=== PATIENT | male | born 1945 | race Caucasian/White ===

== ENCOUNTER → 2019-12-29 15:53 | Outpatient (CLI) | payer OTHER, SELFPAY ==
--- NOTE | ~2019-12-29 | CT_ITS ---
EXAMINATION:CT lung screening DATE: 12/29/2019 16:06 INDICATION: Personal history of tobacco dependence. Smoker who quit 15 years ago with 30 pack year hi story. TECHNIQUE: Computed tomography (CT) of the chest was performed without intravenous contrast. Automate d exposure control and iterative reconstruction technique were employed. The dose-length product (DLP ) was 318.06 mGy-cm. COMPARISON: None. FINDINGS: Calcified pulmonary nodules and calcified mediastinal lymph nodes are consistent with old g ranulomatous disease. There is mild scarring in paraspinal right lower lobe. No pleural effusion. The heart size is normal. There are coronary artery calcifications. No pericardial effusion. Calcificati ons in the spleen are consistent with old granulomatous disease. There is severe thoracic spondylosis . There is mild chronic anterior wedging of multiple thoracic vertebral bodies. IMPRESSION: 1. Lung-RADS category 2: Benign appearance or behavior. Reviewed, dictated and finalized at location A.
== END ==
PROVIDERS: PCP Family Medicine; Visit Provider Physician Assistant
DX: Z87.891 Personal history of nicotine dependence (principal)
CPT/HCPCS: G0297

== ENCOUNTER 2022-01-07 11:08 | Outpatient (CLI) | payer OTHER, SELFPAY ==
--- NOTE | ~2022-01-07 | XR_ITS ---
EXAMINATION: XR lumbar spine 2-3V DATE: 01/07/2022 11:39 INDICATION: Low back pain TECHNIQUE: Anteroposterior and lateral views of the lumbar spine, and cone-down lateral view of the l umbosacral junction were obtained. COMPARISON: 10/07/2017 FINDINGS: There is unchanged chronic grade 2 anterolisthesis of L4 on L5 related to bilateral pars de fects. There is advanced loss of intervertebral disc space height at L4-5. There is moderate loss of intervertebral disc space height at L1-2 and L5-S1. There is no fracture. The vertebral body heights are maintained. Severe lower thoracic spondylosis is noted. Punctate left upper quadrant calcificatio ns likely reflect healed granulomatous disease of the spleen. A 12 mm right upper quadrant calcificat ion likely reflects right nephrolithiasis. IMPRESSION: 1. Severe lumbar spondylosis without acute findings or significant interval change. Reviewed, dictated and finalized at location A. IMPRESSION: 1. Severe lumbar spondylosis without acute findings or significant interval tiago nge.
--- NOTE | ~2022-01-07 | XR_ITS ---
EXAMINATION: XR hip BI 2V w AP pelvis DATE: 01/07/2022 11:39 INDICATION: Bilateral hip and low back pain TECHNIQUE: AP view the pelvis and two views of each hip were obtained. COMPARISON: None. FINDINGS: There is advanced osteoarthritis of the left hip. Bone alignment is normal. There is no fra cture. Calcified atherosclerosis is noted. There are phleboliths of the pelvis. IMPRESSION: 1. Advanced osteoarthritis of the left hip without acute osseous abnormality. Reviewed, dictated and finalized at location A.
== END 2022-01-07 11:09 | disposition home or self-care (01) ==
PROVIDERS: PCP Family Medicine; Visit Provider Physician Assistant
DX: M25.551 Pain in right hip (principal); M47.16 Other spondylosis with myelopathy, lumbar region; M16.12 Unilateral primary osteoarthritis, left hip
CPT/HCPCS: 72100; 73521

== ENCOUNTER 2022-01-09 13:43 | Outpatient (CLI) | payer OTHER, SELFPAY ==
--- NOTE | ~2022-01-09 | US_ITS ---
US art doppler w press LE BI INDICATION: Peripheral vascular disease TECHNIQUE: Segmental pressures and plethysmographic and Doppler waveforms of the brachial and lower e xtremity arteries were obtained. COMPARISON: None. FINDINGS: Right and left brachial artery pressures of 141 mm Hg and 144 mm Hg, respectively, are concordant (no rmal difference <= 30 mmHg). The right ankle-brachial index (LIO) is 1.2 (normal >= 0.9-1.0). The right great toe-brachial index ( TBI) is 0.44 (normal >= 0.60). The left LIO is 1.25. The left TBI is 0.5. IMPRESSION: 1. Normal bilateral ankle-brachial indices. 2: Diminished bilateral toe brachial indices consistent with mild peripheral arterial disease. Reviewed, dictated and finalized at location B. IMPRESSION: 1. Normal bilateral ankle-brachial indices. 2: Diminished bilateral toe brachial indices consistent with mild peripheral ar terial disease.
== END 2022-01-09 13:44 | disposition home or self-care (01) ==
PROVIDERS: PCP Family Medicine; Visit Provider Physician Assistant
DX: I73.9 Peripheral vascular disease, unspecified (principal)
CPT/HCPCS: 93923

== ENCOUNTER 2022-02-07 13:51 | Outpatient (CLI) | payer OTHER, SELFPAY ==
--- NOTE | ~2022-02-07 | MR_ITS ---
EXAMINATION: MR lumbar spine wo con DATE: 02/07/2022 14:55 INDICATION: Lumbar spondylosis with myelopathy. TECHNIQUE: Magnetic resonance imaging (MRI) of the lumbar spine was performed without intravenous con trast. Sequences included sagittal T2-weighted FSE, sagittal T2-weighted FS FSE, sagittal T1-weighted FSE, and axial T2-weighted FSE. COMPARISON: Lumbar spine radiographs 01/07/2022 FINDINGS: There is 11 degrees dextroscoliosis of thoracolumbar spine. There are chronic bilateral L4 pars defects. There is a chronic right L5 pars defect. There is 2 mm retrolisthesis of T11 on T12 and L1 on L2, 3 mm retrolisthesis of L2 on L3, and 15 mm anterolisthesis of L4 on L5. There is mild house manager rosy anterior wedging of T11 vertebral body. There is chronic height loss of L4 vertebral body posteri margarito. There is severely decreased disc height at T10-T11, T11-T12, L1-L2, L2-L3, and L4-L5 and mildly decreased disc height at L5-S1. There is interbody fusion at L4-L5. The distal spinal cord signal in tensity is normal. The conus medullaris is at T12-L1. There are cysts in the kidneys measuring up to 19 mm on the right. The following disc levels are specifically discussed: L1-L2: The disc is bulging and has an annular fissure. There is mild bilateral facet joint osteoarthr itis. There is mild right and moderate left neural foraminal stenosis. There is mild central canal st enosis. L2-L3: The disc is bulging with superimposed right subarticular zone extrusion. There is severe bilat eral facet joint osteoarthritis. There is severe right and moderate left neural foraminal stenosis. T here is severe stenosis of right lateral recess. L3-L4: The disc is bulging. There is severe bilateral facet joint osteoarthritis. There is moderate b ilateral neural foraminal stenosis. There is mild central canal stenosis. L4-L5: There is severe bilateral facet joint osteoarthritis. There is moderate bilateral neural tanisha inal stenosis. There is moderate central canal stenosis. L5-S1: The disc is bulging. There is severe bilateral facet joint osteoarthritis. There is mild bilat eral neural foraminal stenosis. There is mild central canal stenosis. IMPRESSION: 1. Severe lumbar spondylosis. 2. Chronic right L5 pars defect. 3. Interbody fusion at L4-L5. Reviewed, dictated and finalized at location A.
== END 2022-02-07 13:52 | disposition home or self-care (01) ==
LOC: ANHIMG 13:54
PROVIDERS: PCP Family Medicine; Visit Provider Nurse Practitioner
DX: M47.16 Other spondylosis with myelopathy, lumbar region (principal); M47.896 Other spondylosis, lumbar region; Z98.1 Arthrodesis status
CPT/HCPCS: 72148

== ENCOUNTER 2022-04-17 11:17 | Outpatient (CLI) | payer OTHER, SELFPAY ==
--- NOTE | ~2022-04-17 | CT_ITS ---
Noncontrast CT scan of the lumbar spine CLINICAL HISTORY: Back pain TECHNIQUE: Axial noncontrast imaging of the lumbar spine was performed. Sagittal and coronal reformat rubén images were constructed. Dose reduction technique was used on this scan by utilizing automated ex posure control and iterative reconstruction technique. COMPARISON: Lumbar spine MR dated 02/07/2022 FINDINGS: No acute fracture identified. There are chronic bilateral L4 pars interarticularis defects, with 16mm anterolisthesis of L4 over L5, and osseous fusion across the L4-L5 disc space. There is ad vanced degenerative disc narrowing at L1-L2, L2-L3, and L5-S1. At L1-L2, there is minimal disc bulge with mild facet arthropathy. There is probable mild thecal sac compression. There is moderate to severe bilateral neural foraminal narrowing. At L2-L3, disc bulge and facet arthropathy contribute to moderate to severe thecal sac compression. T here is severe left neural foraminal compromise, and moderate right neural foraminal compromise. At L3-L4, disc bulge and facet arthropathy are present. No padmini central canal stenosis. There is sev ere left neural foraminal narrowing and moderate right neural foraminal narrowing. At L4-L5, there is facet joint arthropathy, mild, and probable focal severe central canal stenosis re lated to the listhesis.. There is severe bilateral neural foraminal narrowing. At L5-S1, there is no definite disc bulge or herniation. No definite spinal canal stenosis. There is mild bilateral neural foraminal narrowing. Paravertebral soft tissues are unremarkable. IMPRESSION: Overall, probably no change as compared to prior MR dated 02/07/2022. Chronic bilateral L4 pars interarticularis defects, with 16 mm anterolisthesis of L4 over L5, and oss eous fusion across the L4-L5 disc space. Multifactorial severe thecal sac compression at L2-L3 and L4-L5. There is multilevel moderate to desire re neural foraminal narrowing, as detailed above. Reviewed, dictated and finalized at [facility]. 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 Chronic bilateral L4 pars interarticularis defects, with 16 mm anterolisthesis of L4 over L5, and osseous fusion across the L4-L5 disc space. Multifactorial severe thecal sac compression at L2-L3 and L4-L5. There is multi level moderate to severe neural foraminal narrowing, as detailed above.
== END 2022-04-17 11:18 | disposition home or self-care (01) ==
PROVIDERS: PCP Family Medicine; Visit Provider Neurological Surgery
DX: M54.9 Dorsalgia, unspecified (principal); Z98.1 Arthrodesis status
CPT/HCPCS: 72131

== ENCOUNTER 2024-08-21 09:55 | Emergency (ER) | payer OTHER, SELFPAY ==
[2024-08-21 10:09] VITALS: BP 111/55; PULSE 83; RESP 20; TEMP 36.6; O2SAT 95
--- NOTE | 2024-08-21 10:43 | ED_ITS ---
HPI - Extremity Problem General Chief complaint: Extremity Problem,Nontraumatic Stated complaint: Left Arm/Wrist Swollen Time Seen by Provider: 08/21/24 10:44 Source: patient, RN notes reviewed and old records reviewed Mode of arrival: ambulatory Limitations: no limitations History of Present Illness HPI Narrative: 79-year-old male presents to the [facility] with complaints of left wrist pain, swelling, worse with movement. Patient he has had the pain for at least 2 weeks. Denies any injury. Area is pink, no significant increased warmth. Positive radial pulse. Patient reports he had gout 8 months ago in the same wrist. Related Data Allergies Allergy/AdvReac Type Severity Reaction Status Date / Time No Known Allergies Allergy Verified 08/21/24 09:59 Review of Systems Review of Systems: All systems reviewed & are unremarkable except as noted in HPI and below Constitutional: Constitutional: Reports no additional constitutional complaints ENT: Reports system reviewed and no additional complaints, except as documented Cardiovascular: Cardiovascular: Reports no additional cardiovascular complaints, Denies chest pain and Denies dyspnea Respiratory: Respiratory: Reports no additional respiratory complaints, Denies chest congestion, Denies cough and Denies dyspnea Musculoskeletal: Musculoskeletal: Reports as per HPI, Reports arthralgias and Reports joint swelling Integumentary/Breasts: Skin/Breast: Reports system reviewed and no additional complaints, except as docu [facility] Past Medical History Medical History GERD (gastroesophageal reflux disease) Thoracic spondylosis Bilateral primary osteoarthritis of knee Lumbar spondylosis with myelopathy Impaired fasting glucose Polyneuropathy Peripheral vascular disease History of tobacco use Emphysema lung Mixed hyperlipidemia HTN (hypertension) Family History Family History Father Family history of diabetes mellitus in first degree relative Family history of heart disease in male family member before age 55 Mother Heart disease Sibling Cancer Social History Social History Social History: Smoking packs per day: 1.5 Smoking cigarettes per day: 30.0 Years smoked: 30 Smoking pack-years: 45.00 Smoking status: Former smoker Tobacco type: cigarettes Second hand tobacco smoke exposure: Yes Smoking end date: 04/14/11 Alcohol intake: never Substance use: never Substance use type: does not use Lack of Transportation: No Lack of Food: Never True Current Housing: I Have Housing Concerned About Future Housing: No Difficulty Paying Gas/Electric Bills: No Difficulty Paying for Meds: No Currently Unemployed: YES Education: Decline to Answer Difficulty w/ Childcare or Family Care: No Living arrangements: with family Occupation/Education: retired Gender identity (if verbalized by the patient): Male Sexual Orientation (if Verbalized by the Patient): Straight or Heterosexual Spiritual care concerns: No Comments At the time of my signature, I reviewed and agree with the nursing past medical, surgical, social, and family history. There is no relevant family history pertinent to the patient complaint. Exam Const: General: cooperative, no acute distress, well developed, alert, uncomfortable and well nourished Nutritional Appearance: well nourished Orientation/consciousness: patient oriented x3 Limitations: no limitations HENMT: Head: normal to inspection Eyes: General: appearance normal, both eyes and all related structures Alignment and Position: alignment normal Neck: Neck: normal visual inspection, full ROM, no lymphadenopathy and no meningeal signs Chest: Chest palpation & inspection: normal inspection of the chest Resp: Effort & Inspection: normal respiratory effort and able to speak in complete sentences Cardio: Rate: regular rate Skin: General skin exam: normal color and no rashes or lesions noted Neuro: General: patient oriented x3, moves all extremities and no meningeal signs Cognition (Neuro): normal cognition Speech: normal speech Extrem: General: normal to inspection, full ROM, capillary refill normal and normal gait Left upper extremity: normal capillary refill, wrist and hand neuromotor exam normal Details: wrist extension normal, thumb opposition normal, thumb IP flexion normal, thumb ADduction normal and fingers 2-5 ABduction normal Psych: Appearance: grossly normal and well kempt Mental Status: mental status grossly normal Speech and movement: Normal speech and movement present and Clear speech present Affect: normal affect Attitude: cooperative Course Course Level of Care: Express Care Visit Vital Signs Vital signs: Vital Signs Temperature 97.8 F 08/21/24 10:09 Pulse Rate 83 08/21/24 10:09 Respiratory Rate 20 08/21/24 10:09 Blood Pressure 111/55 L 08/21/24 10:09 Pulse Oximetry 95 08/21/24 10:09 Oxygen Delivery Room Air 08/21/24 10:09 Temperature 97.8 F 08/21/24 10:09 Pulse Rate 83 08/21/24 10:09 Respiratory Rate 20 08/21/24 10:09 Blood Pressure 111/55 L 08/21/24 10:09 Pulse Oximetry 95 08/21/24 10:09 Oxygen Delivery Room Air 08/21/24 10:09 Reviewed MDM - Extremity (Nontraumatic) MDM Narrative Medical decision making narrative: Patient sitting in exam room. Patient is nontoxic, vitals are stable. Patient presents with at least 2 weeks of left wrist pain. Had been wearing a compression brace. Denies any injury. Discussed with patient the concerns for a blood clot, arthritis Discussed transfer to the ER. Patient at this time is not wanting to go, through joint decision making patient is reporting that 8 months ago he was seen at another facility, diagnosed with gout and would like to be treated for gout if it does not improve he will follow-up with his primary care provider or proceed to the nearest emergency room. Discharge instructions reviewed with patient, as well as provided in writing per nursing staff. The instructions also include specific and strict return/GO TO THE ER as well as f/u information. All questions have been answered, and the patient deny any further questions with discharge and discharge plan. Some parts of this dictation were generated by voice recognition software and may contain typographical and/or grammatical inaccuracies. Critical Care Time Critical Care Time Critical Care Time: No Discharge Plan Discharge Clinical Impression: Arthralgia of left wrist, Hx of gout Patient Disposition: Home Condition: Stable Instructions: Antibiotic Form, Gout (ED), Arthritis (ED) Additional Instructions: Rest, ice and elevate every 2-3 hours for 15-20 minutes while awake. If your symptoms get worse please proceed to the emergency room for further evaluation. Patient Language: Moldovan Prescriptions: New prednisone 20 mg tablet 40 mg PO DAILY 5 Days Qty: 10 0RF No Action gabapentin 100 mg capsule See Rx Instructions .ROUTE .COMPLEX Qty: 60 5RF Dose Instruction: TAKE 1 TO 2 CAPSULES BY MOUTH EVERY DAY AT BEDTIME Rx Instructions: TAKE 1 TO 2 CAPSULES BY MOUTH EVERY DAY AT BEDTIME lisinopril-hydrochlorothiazide 10-12.5 mg tablet 1 tablet PO DAILY Qty: 100 3RF celecoxib 200 mg capsule See Rx Instructions .ROUTE .COMPLEX Qty: 60 0RF Dose Instruction: TAKE 1 CAPSULE BY MOUTH TWICE A DAY Rx Instructions: TAKE 1 CAPSULE BY MOUTH TWICE A DAY Follow-up/Referrals: PHYSICIAN,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
== END 2024-08-21 11:05 | disposition home or self-care (01) ==
PROVIDERS: Emergency Provider Nurse Practitioner
DX: M10.9 Gout, unspecified (principal); I73.9 Peripheral vascular disease, unspecified; I10 Essential (primary) hypertension; G62.9 Polyneuropathy, unspecified; E78.2 Mixed hyperlipidemia; K21.9 Gastro-esophageal reflux disease without esophagitis; M47.814 Spondylosis without myelopathy or radiculopathy, thoracic region; M47.16 Other spondylosis with myelopathy, lumbar region; M17.0 Bilateral primary osteoarthritis of knee; Z87.891 Personal history of nicotine dependence
CPT/HCPCS: 99213; G0463